=== PATIENT | male | born 1965 | race African-American/Black ===

== ENCOUNTER 2018-12-28 23:52 | Emergency (ER) | payer MEDICARE, MEDICAID ==
[~2018-12-28] VITALS: Ht 167.6 cm; Wt 86.0 kg
[~2018-12-28 23:52] MED LIST: LISINOPRIL
[2018-12-29 00:36] LABS: BASOPHILS % 0.7 % (0.0-2.0); EOSINOPHILS % 4.3 % (0.0-5.0); HEMATOCRIT. 41.4 % (42.0-52.0); HEMOGLOBIN. 14.1 g/dL (14.0-18.0); LYMPHOCYTES % 41.5 % (20.0-50.0); MEAN CORPUSCULAR HEMOGLOBIN 33.7 pg (28.0-32.0); MEAN CORPUSCULAR VOLUME 99.1 fL (80.0-94.0); MONOCYTES % 11.1 % (2.0-8.0); NEUTROPHILS % 42.4 % (40.0-76.0); PLATELET 148 x1000/uL (130-400); RED BLOOD CELL COUNT 4.18 mill/uL (4.7-6.1); RED CELL DISTRIBUTION WIDTH 12.6 % (11.6-14.6)
[2018-12-29 00:43] LABS: CHLORIDE 108 mEq/L (98-107)
[2018-12-29 00:47] LABS: ETHANOL BLOOD < 10 mg/dL
[2018-12-29] MEDS ORDERED: SODIUM CHLORIDE 0.9% 1,000 ML IV NR (01:15)
[2018-12-29] MEDS ORDERED: IOHEXOL-350 100 ML BOTTLE ONE (02:39)
[2018-12-29] MEDS ORDERED: DIPHENHYDRAMINE 50MG/ML VIAL IV ONE (02:45)
[2018-12-29 09:30] VITALS: BP 137/82
== END 2018-12-29 09:51 | disposition home or self-care (01) ==
LOC: ER 23:52
DX: R07.89 Other chest pain (principal); I71.9 Aortic aneurysm of unspecified site, without rupture; I25.2 Old myocardial infarction
CPT/HCPCS: 36415; 71045; 71275; 74174; 80053; 80320; 83690; 83880; 84484; 85025; 93005; 96374; 99284; J1200; Q9967; G0480

== ENCOUNTER 2022-08-07 15:05 | Emergency (ER) | payer MEDICARE, MEDICAID ==
[~2022-08-07] VITALS: Ht 182.9 cm; Wt 100.0 kg
[2022-08-07 15:07] VITALS: BP 162/91
[2022-08-07] MEDS ORDERED: IBUPROFEN 600MG TABLET PO STA (15:13)
== END 2022-08-07 17:39 | disposition left against medical advice (07) ==
LOC: ER 15:05
DX: S00.81XA Abrasion of other part of head, initial encounter (principal); S80.211A Abrasion, right knee, initial encounter; I25.2 Old myocardial infarction; I10 Essential (primary) hypertension; Z86.73 Personal history of transient ischemic attack (TIA), and cerebral infarction without residual deficits; Y04.2XXA Assault by strike against or bumped into by another person, initial encounter; Y93.89 Activity, other specified; Y92.89 Other specified places as the place of occurrence of the external cause; Y99.8 Other external cause status
CPT/HCPCS: 99281; 99283

== ENCOUNTER 2022-11-18 23:22 | Emergency (ER) | payer MEDICARE, MEDICAID ==
[~2022-11-18] VITALS: Ht 182.9 cm; Wt 80.0 kg
[2022-11-18 23:23] VITALS: O2SAT 98
[2022-11-19] MEDS ORDERED: HYDROCODONE/ACETAMINOPHEN 5/325MG TABLET PO ONE (00:15)
[2022-11-19 01:28] LABS: BASOPHILS % 0.7 % (0.0-2.0); EOSINOPHILS % 2.2 % (0.0-5.0); HEMATOCRIT. 42.4 % (42.0-52.0); HEMOGLOBIN. 14.5 g/dL (14.0-18.0); LYMPHOCYTES % 34.2 % (20.0-50.0); MEAN CORPUSCULAR HEMOGLOBIN 33.6 pg (28.0-32.0); MEAN PLATELET VOLUME 10.5 fl (7.4-10.4); NEUTROPHILS % 48.9 % (40.0-76.0); PLATELET 145 x1000/uL (130-400); RED BLOOD CELL COUNT 4.32 mill/uL (4.7-6.1); RED CELL DISTRIBUTION WIDTH 12.7 % (11.6-14.6)
[2022-11-19 01:38] LABS: CHLORIDE 109 mEq/L (98-107)
[2022-11-19 04:04] VITALS: BP 135/86; PULSE 60; RESP 12; TEMP 98.2
== END 2022-11-19 04:44 | disposition home or self-care (01) ==
LOC: ER 23:22
DX: S29.9XXA Unspecified injury of thorax, initial encounter (principal); R07.89 Other chest pain; I10 Essential (primary) hypertension; I25.2 Old myocardial infarction; W18.39XA Other fall on same level, initial encounter; Y93.89 Activity, other specified; Y92.89 Other specified places as the place of occurrence of the external cause; Y99.8 Other external cause status; Z86.73 Personal history of transient ischemic attack (TIA), and cerebral infarction without residual deficits
CPT/HCPCS: 36415; 71045; 80053; 84484; 85025; 99284

== ENCOUNTER 2023-12-31 20:53 | Emergency (ER) | payer MEDICARE, OTHER ==
[~2023-12-31] VITALS: Ht 175.3 cm; Wt 85.7 kg
[~2023-12-31 20:53] MED LIST changes: +ALPR0.5T11; +GABA-532 PO; +HYDR-4009 PO; -LISINOPRIL; +PANT40TA51 PO; +PRAV80TA21 PO; +TAMS-11; +TRAM50TA3 PO; +TRAZ150T79 PO
[2023-12-31 20:56] VITALS: TEMP 98.3; O2SAT 98
[2023-12-31 21:30] VITALS: BP 144/86; PULSE 76; RESP 17; O2SAT 95
== END 2023-12-31 22:20 | disposition left against medical advice (07) ==
LOC: ER 20:53
DX: R07.89 Other chest pain (principal); I25.2 Old myocardial infarction; I10 Essential (primary) hypertension; Z79.899 Other long term (current) drug therapy; Z86.73 Personal history of transient ischemic attack (TIA), and cerebral infarction without residual deficits; Z53.29 Procedure and treatment not carried out because of patient's decision for other reasons
CPT/HCPCS: 93005; 99283